=== PATIENT | male | born 1960 | race Caucasian/White ===

== ENCOUNTER → 2024-10-05 | Outpatient (CLI) | payer MEDICARE, OTHER ==
[~2024-10-05] MED LIST: ASPI-1444 PO; DIGO125T71 PO; DOCU100T PO; FURO40TA5 PO; LEVO25TA4 PO; METF-444 PO; PANT40TA54 PO; POTA8TAB71 PO; PRAV20TA4 PO; SPIR-37 PO; WARF7.5T49 PO
== END | disposition home or self-care (01) ==
LOC: RADPV 12:21
PROVIDERS: ATTEND Internal Medicine Nephrology
DX: N28.1 Cyst of kidney, acquired (principal); N18.32 Chronic kidney disease, stage 3b
CPT/HCPCS: 76770